=== PATIENT | male | born 1965 | race Caucasian/White ===

== ENCOUNTER 2019-02-04 09:28 | Emergency (ER) | payer OTHER ==
[2019-02-04 09:42] VITALS: RESP 16
[2019-02-04] MEDS ORDERED: KETOROLAC 60 MG/2 ML VIAL IVP STA (10:05)
[2019-02-04] MEDS ORDERED: CLINDAMYCIN 600 MG in DEXTROSE 5% IN WATER 50 ML IVPB STA ×2 (10:07)
--- NOTE | 2019-02-04 10:22 | ED ---
General Adult HPI - General Chief complaint: Dizziness Stated complaint: Arm swollen/dizzy Time Seen by Provider: 02/04/19 09:40 Source: patient, RN notes reviewed Mode of arrival: ambulatory Limitations: no limitations - History of Present Illness Initial comments: This is a 53-year-old male who presents emergency Department with a swollen left elbow he states that he has been diagnosed by an orthopedic surgeon for a septic olecranon bursitis. Patient states she's been on Keflex but the elbow has not gotten any better. Patient states today he felt very hot and lightheaded and thought he might be getting septic psychiatric emergency department. Patient denies any fever. Patient states the area is not improved and may be a little bit more red than normal. Patient states she can move the elbow but the area of swelling hurts and it does not appear to hurt inside the joint he states. Patient has no other symptoms at this time. - Related Data Home Medications Medication Instructions Recorded Confirmed Acetaminophen [Tylenol Extra 500 mg PO TID PRN 02/04/19 02/04/19 Strength] Cephalexin [Keflex] 500 mg PO QID 02/04/19 02/04/19 Previous Rx's Medication Instructions Recorded Clindamycin HCl [Cleocin] 300 mg PO Q8H 14 Days cap 02/04/19 Allergies Allergy/AdvReac Type Severity Reaction Status Date / Time No Known Allergies Allergy Verified 02/04/19 09:47 Review of Systems ROS Statement: Those systems with pertinent positive or pertinent negative responses have been documented in the HPI. ROS Other: All systems not noted in ROS Statement are negative. Past Medical History Past Medical History: No Reported History History of Any Multi-Drug Resistant Organisms: None Reported Past Surgical History: No Surgical Hx Reported Past Psychological History: No Psychological Hx Reported Smoking Status: Never smoker Past Alcohol Use History: None Reported Past Drug Use History: None Reported General Exam - General Exam Comments Initial Comments: GENERAL: Patient is well-developed and well-nourished. Patient is nontoxic and well- hydrated and is in mild distress. ENT: Neck is soft and supple. No significant lymphadenopathy is noted. Oropharynx is clear. Moist mucous membranes. Neck has full range of motion without eliciting any pain. EYES: The sclera were anicteric and conjunctiva were pink and moist. Extraocular movements were intact and pupils were equal round and reactive to light. Eyelids were unremarkable. PULMONARY: Unlabored respirations. Good breath sounds bilaterally. No audible rales rhonchi or wheezing was noted. CARDIOVASCULAR: There is a regular rate and rhythm without any murmurs gallops or rubs. ABDOMEN: Soft and nontender with normal bowel sounds. SKIN: Skin is clear with no lesions or rashes and otherwise unremarkable. NEUROLOGIC: Patient is alert and oriented x3. Cranial nerves II through XII are grossly intact. Motor and sensory are also intact. Normal speech, volume and content. Symmetrical smile. MUSCULOSKELETAL: Normal extremities with adequate strength and full range of motion. LYMPHATICS: No significant lymphadenopathy is noted PSYCHIATRIC: Normal psychiatric evaluation. Limitations: no limitations Course Vital Signs 02/04/19 09:38 Temperature 98.1 F Pulse Rate 77 Respiratory 16 Rate Blood Pressure 145/86 O2 Sat by Pulse 98 Oximetry Medical Decision Making - Medical Decision Making Patient received clindamycin and Toradol shot while in the emergency department. I told the patient we will switch his antibiotics and he will follow-up with Dr. Arora - Lab Data Result diagrams: 02/04/19 10:34 02/04/19 10:34 Lab Results 02/04/19 02/04/19 02/04/19 Range/Units 10:34 10:34 10:34 WBC 6.7 (3.8-10.6) k/uL RBC 4.59 (4.30-5.90) m/uL Hgb 15.0 (13.0-17.5) gm/dL Hct 44.2 (39.0-53.0) % MCV 96.4 (80.0-100.0) fL MCH 32.6 (25.0-35.0) pg MCHC 33.8 (31.0-37.0) g/dL RDW 14.7 (11.5-15.5) % Plt Count 233 (150-450) k/uL Neutrophils % 68 % Lymphocytes % 20 % Monocytes % 8 % Eosinophils % 2 % Basophils % 1 % Neutrophils # 4.6 (1.3-7.7) k/uL Lymphocytes # 1.3 (1.0-4.8) k/uL Monocytes # 0.6 (0-1.0) k/uL Eosinophils # 0.1 (0-0.7) k/uL Basophils # 0.0 (0-0.2) k/uL Sodium 139 (137-145) mmol/L Potassium 4.5 (3.5-5.1) mmol/L Chloride 103 (98-107) mmol/L Carbon Dioxide 25 (22-30) mmol/L Anion Gap 11 mmol/L BUN 19 (9-20) mg/dL Creatinine 0.77 (0.66-1.25) mg/dL Est GFR (CKD-EPI)AfAm >90 (>60 ml/min/1.73 sqM) Est GFR (CKD-EPI)NonAf >90 (>60 ml/min/1.73 sqM) Glucose 95 (74-99) mg/dL Plasma Lactic Acid Mikey 0.8 (0.7-2.0) mmol/L Calcium 8.9 (8.4-10.2) mg/dL Total Bilirubin 0.7 (0.2-1.3) mg/dL AST 20 (17-59) U/L ALT 25 (21-72) U/L Alkaline Phosphatase 39 (38-126) U/L Total Protein 6.9 (6.3-8.2) g/dL Albumin 4.2 (3.5-5.0) g/dL Disposition Clinical Impression: Septic olecranon bursitis Disposition: HOME SELF-CARE Condition: Good Instructions (If sedation given, give patient instructions): Elbow Bursitis (ED) Prescriptions: Clindamycin HCl [Cleocin] 300 mg PO Q8H 14 Days cap Is patient prescribed a controlled substance at d/c from ED?: No Referrals: Gregorio Greer MD [Primary Care Provider] - 1-2 days Time of Disposition: 12:21
[2019-02-04 10:53] LABS: Basophils % (A) 1 %; Eosinophils # (A) 0.1 k/uL (0-0.7); Eosinophils % (A) 2 %; HCT 44.2 % (39.0-53.0); Lymphocytes # (A) 1.3 k/uL (1.0-4.8); Lymphocytes % (A) 20 %; MCH 32.6 pg (25.0-35.0); MCHC 33.8 g/dL (31.0-37.0); MCV 96.4 fL (80.0-100.0); Mean Platelet Volume 6.7; Monocytes # (A) 0.6 k/uL (0-1.0); Monocytes % (A) 8 %; Neutrophils # (A) 4.6 k/uL (1.3-7.7); Neutrophils % (A) 68 %; Platelet Count 233 k/uL (150-450); RBC 4.59 m/uL (4.30-5.90); RDW 14.7 % (11.5-15.5); WBC 6.7 k/uL (3.8-10.6)
[2019-02-04 11:08] LABS: ALT 25 U/L (21-72); AST 20 U/L (17-59); African American GFR (CKD) >90 (>60 ml/min/1.73 sqM); Albumin 4.2 g/dL (3.5-5.0); Alkaline Phosphatase 39 U/L (38-126); Anion Gap 11 mmol/L; Blood Urea Nitrogen 19 mg/dL (9-20); Calcium 8.9 mg/dL (8.4-10.2); Carbon Dioxide 25 mmol/L (22-30); Chloride 103 mmol/L (98-107); Glucose 95 mg/dL (74-99); Potassium 4.5 mmol/L (3.5-5.1); Sodium 139 mmol/L (137-145); Total Bilirubin 0.7 mg/dL (0.2-1.3); Total Protein 6.9 g/dL (6.3-8.2)
--- NOTE | 2019-02-04 11:45 | XR ---
EXAMINATION TYPE: XR elbow complete LT DATE OF EXAM: 02/04/2019 CLINICAL HISTORY: Left elbow pain, redness, swelling. History of bursitis TECHNIQUE: Frontal, lateral and oblique images of the left elbow are obtained. COMPARISON: None FINDINGS: There is no acute fracture/dislocation evident in the left elbow. No abnormal fat pad sig ns are seen. Soft tissue swelling is seen over the posterior medial soft tissues of the distal humeru s and olecranon. Sclerotic focus overlying the olecranon may relate to a benign bone island. No radio paque foreign body. IMPRESSION: 1. Posterior medial soft tissue swelling over the distal humerus and olecranon. Recurrent olecranon b ursitis should be considered. No radiopaque foreign body. No sizable joint effusion. 2. No acute fracture or dislocation in the left elbow.
[2019-02-04 12:40] VITALS: BP 136/93; PULSE 75; TEMP 98.5
== END 2019-02-04 12:41 | disposition home or self-care (01) ==
LOC: EC 09:28
DX: M70.22 Olecranon bursitis, left elbow (principal); R42 Dizziness and giddiness
CPT/HCPCS: 36415; 80053; 83605; 85025; 87040; 73080; 99284; 96365; 96375; J1885